=== PATIENT | male | born 1985 | race Caucasian/White ===

== ENCOUNTER 2018-03-28 21:53 | Emergency (ER) | payer OTHER ==
--- NOTE | 2018-03-29 00:50 | ER Document Report ---
ED Skin Rash/Insect Bite/Abscs - General Chief Complaint: Rash Stated Complaint: POSSIBLE RASH Time Seen by Provider: 03/29/18 00:33 Mode of Arrival: Ambulatory Information source: Patient, Relative Notes: Patient is a 32-year-old male comes emergency room complaining of a rash. He states that the rash originally started on his chest and is been there for at least 2 weeks. Then he states that it can exploded in the last 2 days across his back and now ends up his arms and legs. It is very pruritic and he does not have any close to what it is. Denies any other medical problems. States that his blood pressure has been high for the last couple weeks but he has not seen his primary care yet because he is busy. 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 He is on his feet a lot all day long. He gets overheated. He does not smoke. No other significant history. He states that no one in the family has any resemblance of this kind of rash. TRAVEL OUTSIDE OF THE [place] IN LAST 30 DAYS: No - HPI Patient complains to provider of: Skin rash/lesion Onset: Other - 2 weeks but worse the past 3 days. Onset/Duration: Gradual, Worse Severity: Moderate Pain Level: 3 Skin Character: Rash - Liu color scales, Scales Skin Temperature: Warm Quality of rash: Itchy Identify cause: No - Not 100% certain but it does appear to be a staph infection. Exacerbated by: Denies Relieved by: Denies Similar symptoms previously: Yes Recently seen / treated by doctor: No Past Medical History - General Information source: Patient, Relative - Social History Smoking Status: Never Smoker Cigarette use (# per day): No Chew tobacco use (# tins/day): No Frequency of alcohol use: None Drug Abuse: None Family History: Reviewed & Not Pertinent Patient has suicidal ideation: No Patient has homicidal ideation: No Renal/ Medical History: Denies: Hx Peritoneal Dialysis Past Surgical History: Reports: Hx Kidney (Renal Surgery) Review of Systems - Review of Systems Constitutional: No symptoms reported EENT: No symptoms reported Cardiovascular: No symptoms reported Respiratory: No symptoms reported Gastrointestinal: No symptoms reported Genitourinary: No symptoms reported Male Genitourinary: No symptoms reported Musculoskeletal: No symptoms reported Skin: Rash Hematologic/Lymphatic: No symptoms reported Neurological/Psychological: No symptoms reported -: Yes All other systems reviewed and negative Physical Exam - Vital signs Vitals: Temp Pulse Resp BP Pulse Ox 98.0 F 82 16 132/78 H 99 03/28/18 22:23 03/28/18 22:23 03/28/18 22:23 03/28/18 22:23 03/28/18 22:23 Interpretation: Hypertensive - Notes Notes: Patient well-nourished well-developed 32-year-old male no apparent distress. Although he does appear uncomfortable. - General General appearance: Alert - HEENT Head: Normocephalic, Atraumatic Eyes: Normal - Respiratory Respiratory status: No respiratory distress Chest status: Nontender Breath sounds: Normal. No: Rales, Stridor, Wheezing Chest palpation: Normal - Cardiovascular Rhythm: Regular Heart sounds: Normal auscultation Murmur: Yes - Abdominal Inspection: Normal Distension: No distension Bowel sounds: Normal Tenderness: Nontender Organomegaly: No organomegaly - Back Back: Normal, Nontender, Other - See skin and rash - Extremities General upper extremity: Nontender, Normal ROM, Normal strength, Other - See skin and rash General lower extremity: Nontender, Normal ROM, Normal strength, Normal weight bearing, Other - See skin and rash - Skin Skin Temperature: Warm Skin Color: Erythema Skin irregularity: Rash Location of irregularity: Generalized, Scalp, Neck, Abdomen, Chest, Back, Extremities Character of irregularity: Maculopapular, Confluent, Erythematous, Other - Examination of patient's rash shows been started on the anterior chest patient has a lot of hair. The presentation looks like a folliculitis that has migrated into a full-blown staph infection. Patient has the impetigo presentation of lesions. Across his anterior chest and now forming on the back. The arms and legs are minimally affected at this time. In the scalp also is minimally effective but there are the lesions that are gold and scaly should like that represent staph. Irregularity with: Warmth, Scaling, Crusting Course - Re-evaluation Re-evalutation: 03/29/18 00:53 I have talked to the patient and . I really believe this to be an impetigo type of presentation of a rash that started up probably as a folliculitis and has was not taking care of and has migrated into this full-fledged attack on his body. The folliculitis on the anterior chest is pretty self explanatory with the amount of hair patient has on the back as well. He is got excoriations where he has scratched himself across the abdomen. The have also turned the areas into a little bit of a cellulitis. So at this time you know I cannot 100% certain that this is a folliculitis slowly it could be an allergic reaction that is also gotten infected. At this point we will going to put him on a steroid taper and were going to put him on Bactrim for the infection along with some Keflex. Having patient follow-up with his primary care sometime this week. I have informed him not to be taking hot baths and that he is probably contagious with contact only. - Vital Signs Vital signs: Temp Pulse Resp BP Pulse Ox 98.0 F 82 16 132/78 H 99 03/28/18 22:23 03/28/18 22:23 03/28/18 22:23 03/28/18 22:23 03/28/18 22:23 Discharge - Discharge Clinical Impression: Staphylococcal infection of skin, Folliculitis Allergic reaction Qualifiers: Encounter type: initial encounter Qualified Code(s): T78.40XA - Allergy, unspecified, initial encounter Condition: Stable Disposition: HOME, SELF-CARE Instructions: Folliculitis ([facility]), Impetigo ([facility]), Acute Allergic Reaction ([facility]) , Cellulitis ([facility]) Additional Instructions: I really believe this to be a staph infection probably it started as a folliculitis that migrated into it because of inattention. This could be an allergic reaction that has started out and as she scratched it became a cellulitis kind of presentation. I am not really sure which came first. In any event we will treated with steroids antibiotics and I am going to put you on a Zantac pill which blocks histamine release in case this is an allergic reaction. I want you to contact your primary care follow-up with him sometime the first of the week. In any event I would stay closed and not rub up against anyone until you start having some response to the antibiotics. You can take the antihistamine that I prescribed for him to try Benadryl [id number] for the itch as well. Do not combine the 2 together. Should you have any concerns or problems return to ER for recheck. Prescriptions: Cephalexin Monohydrate [Keflex 500 mg Capsule] 500 mg PO Q6H 5 Days #28 capsule Hydroxyzine HCl 50 mg PO TID #30 tablet Prednisone 10 mg PO ASDIR PRN #1 tab.ds.pk PRN Reason: Sulfamethoxazole/Trimethoprim [Bactrim Ds Tablet] 1 each PO BID #28 tablet
[2018-03-29 01:25] VITALS: BP 123/77
== END 2018-03-29 01:24 | disposition home or self-care (01) ==
LOC: ER 21:53
DX: L08.9 Local infection of the skin and subcutaneous tissue, unspecified (principal); B95.8 Unspecified staphylococcus as the cause of diseases classified elsewhere; L03.311 Cellulitis of abdominal wall; L73.9 Follicular disorder, unspecified; T78.40XA Allergy, unspecified, initial encounter; X58.XXXA Exposure to other specified factors, initial encounter; I10 Essential (primary) hypertension
CPT/HCPCS: 99282

== ENCOUNTER → 2018-10-02 | Outpatient (CLI) | payer OTHER | LOC: OD 10:30 | PROVIDERS: ATTEND Otolaryngology | DX: J30.9 Allergic rhinitis, unspecified (principal) | CPT/HCPCS: 36415; 82785; 86003 ==

== ENCOUNTER 2019-02-24 10:04 | Day surgery (SDC) | payer OTHER ==
[2019-02-24] MEDS ORDERED: MIDAZOLAM 2 MG/2 ML INJ ONE (10:20)
[2019-02-24] MEDS ORDERED: LIDOCAINE 2% INJ-PF (20 MG/ML) 10 ML AMPUL ONE (10:20)
[2019-02-24] MEDS ORDERED: ONDANSETRON HCL INJ/PF 4 MG/2 ML SDV ONE (10:20)
[2019-02-24] MEDS ORDERED: FENTANYL CITRATE INJ/PF 100 MCG/2 ML AMPUL ONE ×2 (10:21→13:48)
[2019-02-24] MEDS ORDERED: DEXAMETHASONE SOD PHOS INJ 10 MG/1 ML VIAL ONE (10:21)
[2019-02-24] MEDS ORDERED: GLYCOPYRROLATE INJ 0.4 MG/2 ML VIAL ONE (10:21)
[2019-02-24] MEDS ORDERED: SUCCINYLCHOLINE CHLORIDE INJ 200 MG/10 ML VIAL ONE (10:22)
[2019-02-24] MEDS ORDERED: PROPOFOL INJ 200 MG/20 ML VIAL IV ONE (10:22)
[2019-02-24] MEDS ORDERED: OXYMETAZOLINE HCL 0.05% NASAL SPRAY 15 ML BOTTLE ONE (10:27)
[2019-02-24] MEDS ORDERED: COCAINE HCL 4% TOPICAL SOLN 4 ML ONE (10:27)
[2019-02-24] MEDS ORDERED: BACITRACIN ZINC OINTMENT 15 GM ONE (10:27)
[2019-02-24] MEDS ORDERED: LIDOCAINE 2%/EPINEPHRINE INJ 1.7 ML CARTRIDGE ONE ×3 (10:28→11:41)
[2019-02-24] MEDS ORDERED: DEXMEDETOMIDINE INJ 80 MCG/20 ML VIAL IV ONE (13:01)
--- NOTE | 2019-02-24 13:09 | Operative Report ---
Operative Report-[facility] Operative Report: Date: 24 February 2019 History: presents with a history of nasal dyspnea right eustachian tube dysf unction and bilateral nasal vestibular stenosis.. Physical exam revealed a deviated nasal septum ,Inferior turbinate hypertrophy, retracted tympanic membrane on the right and collapse bilateral external nasal valve that is improved with the Benigno maneuver.. Presents today for a septoplasty ,turbinate reduction, right myringotomy with tympanostomy tube placement, balloon dilation right eustachian tube and repair bilateral nasal vestibular stenosis using the SmartAsset nasal airway remodeling system. Informed consent was obtained for the patient. Pre-operative diagnosis: 1.Deviated nasal septum 2. Inferior turbinate hypertrophy 3. Nasal vestibular stenosis, right side 4. Nasal vestibular stenosis left side 5. Eustachian tube dysfunction right side Post operative diagnosis: same as above. Procedure: 1. Nasal septoplasty 2. Inferior turbinate reduction, right side 3 . Inferior turbinate reduction, left side 4. Repair nasal vestibular stenosis, right side (CPT code: 57876) 5. Repair nasal vestibular stenosis, left side (CPT code: 65906) 6. Right myringotomy with tympanostomy tube placement 7. Balloon dilation right eustachian tube/repair nasopharynx right side (CPT code 60656) 8. Rigid nasal endoscopy, right side Surgeon: Bigg Sanchez MD, FACS, [facility] Anesthia: RENATA Description of the procedure: After receiving informed consent, the patient was brought to the operating room and placed supine on the operating table. After successful insuction and intubation by anesthesia, cottonoids soaked with 4% cocaine replaced into each nasal cavity for approximately five minutes. They were removed andthe septum along with the inferior turbinate were injections with 2% Xylocaine with 1:100,000 epinephrine. The cottonoids were replaced. The patient was then prepped and draped in a sterile fashion. The cottonoids where then removed. The microscope was brought into the field and under binocular microscopy a properly sized speculum was placed into the right external auditory canal. Tympanic membrane was visualized. Myringotomy knife used to make a radial incision in the anterior inferior quadrant. Middle ear space was dry. A Paparella PE tube was then placed into this incision. Otic drops placed into the extra auditory canal. Attention was then directed to the balloon dilation of the eustachian tube. The cottonoids were removed from the right nasal cavity. A 30 degree rigid nasal endoscope was then placed in the right nasal cavity. The eustachian tube orifice was identified. Next the Acclarent Aera eustachian tube balloon dilation device was then placed into the right nasal cavity. The right eustachian tube was cannulated and the balloon was inflated to 12 abdiaziz of pressure for 2 minutes. Balloon was then let down and the device removed. A number 15 blade was used to make a bouchra transfixtion incision on the left side. Next using a Riley and then A Rankin elevator, a mucoperichondrial/mucoperiosteal flap was elevated back to the sphenoid rostrum. This was then elevated onto the nasal floor. The osseocartilaginous junction was and a mucoperiosteal flap was elevated on the right side. Thurston scissors were used to make horizontal cuts in the perpendicular plate of the ethmoid bone, superiorly and inferiorly. Quincy-Ewing forceps were used to remove this. A vomeroethmoid spur was identified and the mucosa was carefully dissected from it. A V-chisel was used to remove this spur. An inferior cartilage spur was removed using a D knife . The septum was viewed with the flaps in place and found to be relatively s traight. The bouchra transfixion incision was closed using 4-0 chromic and a 4-0 plain gut whip stitch was used to secure the septal flaps. Attention was then directed to the inferior turbinates where an inferior turbinate reduction was performed bilaterally. The Celon was used to perform an intramural cauterization bilaterally. Then each turbinate was medialized and then lateralized using a Sayer elevator . The Vivaer nasal airway remodeling system was then used to repair the nasal vestibular stenosis bilaterally. Attention was then directed to the right nostril where the Vivaer device was placed at the caudal margin of the upper lateral cartilage superiorly and the device activated. This was done 2 more times moving inferiorly. The procedure was done on the left side. The Vivaer was used in 3 different locations along the caudal edge of the upper lateral cartilage starting superiorly and moving inferiorly.. Silicon splints coated with bacitracin were placed into each nasal cavity and secured with a 2-0 prolene. Afrin soaked cottonoids were placed into each nasal cavity and secured to each other in front of the nose. The patient was then given back to anesthesia who successfully extubated them. The patient tolerated the procedure well without any complications. Estimated blood loss: 20 mL Fluids: 800 mL The patient was transferred to the post anesthesia care unit in stable condition with spontaneous respirations.
== END 2019-02-24 14:48 | disposition home or self-care (01) ==
LOC: SC 10:04
PROVIDERS: ATTEND Otolaryngology
DX: J34.2 Deviated nasal septum (principal); H69.81 Other specified disorders of Eustachian tube, right ear; J34.89 Other specified disorders of nose and nasal sinuses; J34.3 Hypertrophy of nasal turbinates; G44.89 Other headache syndrome; J30.9 Allergic rhinitis, unspecified; J35.1 Hypertrophy of tonsils; G47.33 Obstructive sleep apnea (adult) (pediatric)
CPT/HCPCS: 30465; 42950; 30802; 30520; 69436; J2250; J3490 ×6; J3010; J0330; J2405; J2704; J1100; 160

== ENCOUNTER 2019-02-25 22:26 | Emergency (ER) | payer OTHER ==
--- NOTE | 2019-02-25 22:56 | ER Document Report ---
ED ENT - General Stated Complaint: BACK PAIN Time Seen by Provider: 02/25/19 22:39 Primary Care Provider: LIZ CAMPOS MD [Primary Care Provider] - Follow up as needed Mode of Arrival: Ambulatory Information source: Patient, Relative Notes: HISTORY OF PRESENT ILLNESS: Patient is a 33-year-old male with a past medical history of recent septoplasty with eustachian to repair performed 1 day ago who presents with headache, congestion, sinus pressure, and general malaise. The patient denies recent fevers and reports that he has been taking both his antibiotic and his pain medications as instructed. Location: Head, nasal, sinus Onset: Today Provocation: Bending, movement, coughing Quality: Aching Radiation: Generalized Severity: Moderate Timing: Constant History of headaches: None Recent head injury: None Vision changes: None Associated symptoms: Denies fevers or chills, no vision changes, no altered mental status or weakness REVIEW OF SYSTEMS: CONSTITUTIONAL : Denies fever or chills, no sweats. Denies recent illness. EENT: Positive for nasal congestion, headache, and earaches. CARDIOVASCULAR: Denies chest pain. RESPIRATORY: Denies cough, cold, or chest congestion. Denies shortness of breath, difficulty breathing, or wheezing. GASTROINTESTINAL: Denies abdominal pain. Denies nausea, vomiting, or diarrhea. Denies constipation. GENITOURINARY: Denies difficulty urinating, painful urination, burning, frequency, or blood in urine. MUSCULOSKELETAL: Denies body aches. Denies neck or back pain or joint pain or swelling. SKIN: Denies rash or skin lesions. HEMATOLOGIC : Denies easy bruising or bleeding. LYMPHATIC: Denies swollen, enlarged glands. NEUROLOGICAL: Positive for headaches. Denies altered mental status or loss of consciousness. Denies weakness or paralysis or loss of use of either side. Denies problems with gait or speech. Denies sensory or motor loss. PSYCHIATRIC: Denies anxiety or stress or depression. All other systems reviewed and negative. PHYSICAL EXAMINATION: GENERAL: Tired-appearing but in no distress, well-nourished and in no acute distress. HEAD: Atraumatic, normocephalic. No scalp deformity, depression, or crepitance. EYES: Pupils are 3 mm and equal/round/reactive to light, extraocular movements intact, sclera anicteric, conjunctiva are normal. ENT: Nares have packing bilaterally, no active bleeding or drainage, oropharynx clear without exudates or palatal petechia. Moist mucous membranes. No tonsil hypertrophy. NECK: Normal range of motion, supple without lymphadenopathy. LUNGS: Breath sounds present, equal, and clear to auscultation bilaterally. No wheezes, rales, or rhonchi. HEART: Regular rate and rhythm without murmurs, rubs, or gallops. 2+ peripheral pulses. Normal capillary refill. ABDOMEN: Soft, nontender, nondistended. Normoactive bowel sounds. No guarding, no rebound. No masses appreciated. BACK: Normal contour, no midline tenderness. Rectal exam deferred. GENITAL/PELVC: Deferred. EXTREMITIES: Normal range of motion, no pitting or edema. No cyanosis. NEUROLOGICAL: No focal neurological deficits. Cranial nerves III-XII grossly intact. Moves all extremities spontaneously and on command. PSYCH: Normal mood, normal affect. No suicidal thoughts/ideations. No homicidal thoughts/ideations. No hallucinations. SKIN: Warm, dry, normal turgor, no rashes or lesions noted. ASSESSMENT AND PLAN: This patient is a 33-year-old male who presents with headache and increased sinus congestion following surgery 1 day ago to repair a deviated septum and clear his eustachian tubes. 1. Will obtain labs, CT head/face, and reassess. 2. Will give IV fluids with Toradol. TRAVEL OUTSIDE OF THE [place] IN LAST 30 DAYS: No - HPI Patient complains to provider of: Nose problem Onset: This evening Onset/Duration: Gradual Quality of pain: Achy, Stabbing Severity: Moderate Pain Level: 3 Context: Other - Recent septoplasty and repair of eustashion tubes Location of pain: Nose, Sinus Associated symptoms: Chills, Congestion, Face swelling, Fever, Headache, Sinus pain Similar symptoms previously: No Recently seen / treated by doctor: Yes - Related Data Allergies/Adverse Reactions: Penicillins Allergy (Verified 02/20/19 08:23) Hives Past Medical History - General Information source: Patient, Relative - Social History Smoking Status: Current Some Day Smoker Chew tobacco use (# tins/day): No Frequency of alcohol use: None Drug Abuse: None Lives with: Family Family History: Reviewed & Not Pertinent Patient has suicidal ideation: No Patient has homicidal ideation: No - Past Medical History Cardiac Medical History: Reports: None Denies: Hx Heart Attack, Hx Hypertension Pulmonary Medical History: Reports: None Denies: Hx Asthma EENT Medical History: Reports: Ears, Nose Neurological Medical History: Reports: None. Denies: Hx Cerebrovascular Accident, Hx Seizures Endocrine Medical History: Reports: None Renal/ Medical History: Reports: None. Denies: Hx Peritoneal Dialysis Malignancy Medical History: Reports None GI Medical History: Reports: None. Denies: Hx Hepatitis, Hx Hiatal Hernia, Hx Ulcer Musculoskeletal Medical History: Reports None Skin Medical History: Reports None Psychiatric Medical History: Reports: None Traumatic Medical History: Reports: None Infectious Medical History: Reports: None. Denies: Hx Hepatitis Past Surgical History: Reports: Hx Kidney (Renal Surgery), Other - Hx of septoplasty. Denies: Hx Open Heart Surgery, Hx Pacemaker - Immunizations Immunizations up to date: Yes Hx Diphtheria, Pertussis, Tetanus Vaccination: Yes Review of Systems - Review of Systems Constitutional: No symptoms reported EENT: See HPI, Nose congestion, Sinus pressure Cardiovascular: No symptoms reported Respiratory: No symptoms reported Gastrointestinal: No symptoms reported Genitourinary: No symptoms reported Male Genitourinary: No symptoms reported Musculoskeletal: No symptoms reported Skin: No symptoms reported Hematologic/Lymphatic: No symptoms reported Neurological/Psychological: No symptoms reported -: Yes All other systems reviewed and negative Physical Exam - Vital signs Vitals: Temp BP Pulse Ox 97.4 F 123/78 100 02/25/19 22:30 02/25/19 22:30 02/25/19 22:30 Interpretation: Normal - General General appearance: Appears well, Alert - HEENT Head: Normocephalic, Atraumatic Eyes: Normal Pupils: PERRL - Respiratory Respiratory status: No respiratory distress Chest status: Nontender Breath sounds: Normal Chest palpation: Normal - Cardiovascular Rhythm: Regular Heart sounds: Normal auscultation Murmur: No - Abdominal Inspection: Normal Distension: No distension Bowel sounds: Normal Tenderness: Nontender Organomegaly: No organomegaly - Back Back: Normal, Nontender - Extremities General upper extremity: Normal inspection, Nontender, Normal color, Normal ROM, Normal temperature General lower extremity: Normal inspection, Nontender, Normal color, Normal ROM, Normal temperature, Normal weight bearing. No: Rosey's sign - Neurological Neuro grossly intact: Yes Cognition: Normal Orientation: AAOx4 Suzie Coma Scale Eye Opening: Spontaneous Suzie Coma Scale Verbal: Oriented Suzie Coma Scale Motor: Obeys Commands Suzie Coma Scale Total: 15 Speech: Normal Motor strength normal: LUE, RUE, LLE, RLE Sensory: Normal - Psychological Associated symptoms: Normal affect, Normal mood - Skin Skin Temperature: Warm Skin Moisture: Dry Skin Color: Normal Course - Re-evaluation Re-evalutation: 02/26/19 02:05 Blood work shows mild elevation of white blood cell count. CT scan showed normal postoperative changes with no evidence of infection or complications. Patient was given IV fluids with Toradol and improved. Will discharge the patient home with strict return precautions and follow-up with ENT. All results were explained to and discussed with the patient and his , and all questions addressed and answered for the patient. The patient and his voice both understanding and agreeing with the plan. - Vital Signs Vital signs: Temp Pulse Resp BP Pulse Ox 98.5 F 146/95 H 95 02/25/19 23:24 02/25/19 23:01 02/25/19 23:01 - Laboratory Result Diagrams: 02/25/19 22:33 02/25/19 22:33 Laboratory results interpreted by me: 02/25/19 02/25/19 22:33 22:33 WBC 14.5 H Storey % (Auto) 15.0 H Absolute Neuts (auto) 8.6 H Absolute Monos (auto) 2.2 H Potassium 3.5 L Glucose 129 H - Diagnostic Test Radiology reviewed: Image reviewed, Reports reviewed Discharge - Discharge Clinical Impression: Post-operative pain Condition: Good Disposition: HOME, SELF-CARE Instructions: Headache ([facility]) Additional Instructions: You have been evaluated in the Emergency Department for headache and back pain with nasal congestion related to your surgery. While here, you had blood work and a head CT and it is now safe to be discharged home. Please follow-up with your primary physician and ENT as instructed in 1 week to be rechecked. Return to the Emergency Department if you experience high fevers, vision changes, altered behavior, difficulty walking, numbness/tingling of the extremities, worsening headache/back pain, or any other concerning symptoms. Prescriptions: Clindamycin HCl 300 mg PO TID #21 capsule Diclofenac Sodium 75 mg PO BID #30 tablet. Referrals: LIZ CAMPOS MD [Primary Care Provider] - Follow up as needed Print Language: Montserratian
[2019-02-25] MEDS ORDERED: NORMAL SALINE 1000 ML 1,000 ML IV ONE (22:57)
[2019-02-25] MEDS ORDERED: KETOROLAC TROMETHAMINE INJ/PF 30 MG/1 ML SDV IV ONE (22:57)
[2019-02-25 23:10] LABS: ABSOLUTE BASOPHILS # (AUTO) 0.1 10^3/uL (0.0-0.2); ABSOLUTE EOSINOPHILS # (AUTO) 0.2 10^3/uL (0.0-0.6); ABSOLUTE LYMPHOCYTES (AUTO) 3.5 10^3/uL (0.5-4.7); ABSOLUTE MONOCYTES (AUTO) 2.2 10^3/uL (0.1-1.4); ABSOLUTE NEUT (AUTO) 8.6 10^3/uL (1.7-8.2); BASOPHILS % (AUTO) 0.5 % (0-2); EOSINOPHILS % (AUTO) 1.1 % (0-6); HEMOGLOBIN 14.3 g/dL (13.5-17.0); MEAN CORPUSCULAR HEMOGLOBIN 28.3 pg (27.0-33.4); MEAN CORPUSCULAR HGB CONC 33.3 g/dL (32.0-36.0); MEAN CORPUSCULAR VOLUME 85 fl (80-97); PLATELET COUNT 315 10^3/uL (150-450); RED BLOOD COUNT 5.06 10^6/uL (4.35-5.55); RED CELL DISTRIBUTION WIDTH 13.8 % (11.5-14.0); SEGMENTED NEUTROPHILS % (AUTO) 59.4 % (42-78); TOTAL CELLS COUNTED % (AUTO) 100 %; WHITE BLOOD COUNT 14.5 10^3/uL (4.0-10.5)
[2019-02-25 23:18] LABS: ALBUMIN 3.9 g/dL (3.5-5.0); ALKALINE PHOSPHATASE 74 U/L (38-126); ANION GAP 10 (5-19); ASPARTATE AMINO TRANSFERASE 50 U/L (17-59); BILIRUBIN,DIRECT 0.2 mg/dL (0.0-0.4); BILIRUBIN,TOTAL 0.6 mg/dL (0.2-1.3); BLOOD UREA NITROGEN 13 mg/dL (7-20); CALCIUM 9.1 mg/dL (8.4-10.2); CARBON DIOXIDE 25 mmol/L (22-30); CHLORIDE 104 mmol/L (98-107); GLUCOSE 129 mg/dL (75-110); POTASSIUM 3.5 mmol/L (3.6-5.0); TOTAL PROTEIN 7.2 g/dL (6.3-8.2)
[2019-02-25 23:32] LABS: APPEARANCE,URINE CLEAR; BILIRUBIN,URINE NEGATIVE (NEGATIVE); COLOR,URINE YELLOW; GLUCOSE, URINE NEGATIVE (NEGATIVE); KETONES,URINE NEGATIVE (NEGATIVE); LEUKOCYTE ESTERASE,URINE NEGATIVE (NEGATIVE); NITRITE,URINE NEGATIVE (NEGATIVE); PROTEIN,URINE NEGATIVE (NEGATIVE); UROBILINOGEN,URINE NEGATIVE mg/dL (<2.0)
[2019-02-25 23:46] LABS: URINE AMPHETAMINES SCREEN NEGATIVE; URINE BARBITURATES SCREEN NEGATIVE; URINE BENZODIAZEPINES SCREEN NEGATIVE; URINE COCAINE SCREEN NEGATIVE; URINE MARIJUANA (THC) SCREEN NEGATIVE; URINE METHADONE SCREEN NEGATIVE; URINE PHENCYCLIDINE SCREEN NEGATIVE
--- NOTE | 2019-02-26 00:47 | RADIOLOGY REPORT (SQ) ---
EXAM DESCRIPTION: CT HEAD WITHOUT IV CONTRAST COMPLETED DATE/TME: 02/25/2019 22:57 CLINICAL HISTORY: 33 years, Male, Headache AFTER SURGERY YESTERDAY(SEPTOPLASTY, EUSTACHIAN TUBE REPAIR) COMPARISON: None. TECHNIQUE: 214 Images stored on PACS. All CT scanners at this facility use dose modulation, iterative reconstruction, and/or weight based dosing when appropriate to reduce radiation dose to as low as reasonably achievable (ALARA). [facility]: Dose Right [facility]: CareDose [facility]: Dose Right [facility]: Teradose 4D [facility]: [employer] LIMITATIONS: None. FINDINGS: The globes are intact. Mucosal thickening and polyp formation of the maxillary sinuses and ethmoid air cells. There is no displaced or depressed skull fracture. There is no intra or extra-axial hemorrhage. CT is limited for evaluation of acute infarct. There is no CT evidence for large or territorial acute infarct. No mass. No midline shift. IMPRESSION: Mucosal thickening and polyps of the paranasal sinuses. Remainder is unremarkable TECHNICAL DOCUMENTATION: Quality ID # [id number]: Final reports with documentation of one or more dose reduction techniques (e.g., Automated exposure control, adjustment of the mA and/or kV according to patient size, use of iterative reconstruction technique) copyright 2010 [employer]- All Rights Reserved
--- NOTE | 2019-02-26 01:02 | RADIOLOGY REPORT (SQ) ---
EXAM: CT maxillofacial without intravenous contrast CLINICAL DATA: 33-year-old male with facial pain after surgery yesterday (septoplasty and eustachian tube repair). TECHNICAL DATA: Axial CT of the facial bones was performed without intravenous contrast with sagittal and coronal reformatted images. The CT study is performed according to ALARA (as low as reasonably achievable) or ALARA/IMAGE GENTLY, with automatic adjustment of mA and/or kV according to patient size. Performed on: 02/26/2019 at 12:17 AM Comparison: None. FINDINGS: There are postsurgical changes of the nasal cavity consistent with septoplasty repair. There appear to be thin splints within the nostrils bilaterally supporting the nasal septum. The nasal bones are intact. The bony nasal septum is minimally deviated to the left posteriorly. The anterior maxillary spine is intact. There is no evidence of acute facial bone fracture. The mandible is intact. The temporomandibular joints are preserved. Both globes are intact and are symmetric. The extraocular muscles and optic nerves are symmetric. The intraconal fat is preserved. There is no evidence of intraorbital emphysema. There is patchy mucosal thickening of the paranasal sinuses. There is a mucous retention cyst within the posterior left maxillary sinus measuring approximately 2.5 x 1.7 cm in cross-sectional diameter. There does appear to be at least partial obstruction of the ostiomeatal units bilaterally. Mastoid air cells and middle ear cavities are clear. There is no significant soft tissue swelling identified. IMPRESSION: 1. Postsurgical changes of the nasal cavity consistent with septoplasty repair. There appear to be thin splints within the nostrils bilaterally supporting the nasal septum. 2. Patchy paranasal sinus mucosal thickening with at least partial obstruction of the ostiomeatal units.
[2019-02-26 02:17] VITALS: BP 164/108
== END 2019-02-26 02:28 | disposition home or self-care (01) ==
LOC: ER 22:26
DX: G89.18 Other acute postprocedural pain (principal); R51 Headache; J34.89 Other specified disorders of nose and nasal sinuses; R09.81 Nasal congestion; R53.81 Other malaise; R50.9 Fever, unspecified; F17.200 Nicotine dependence, unspecified, uncomplicated; D72.829 Elevated white blood cell count, unspecified; Z98.890 Other specified postprocedural states
CPT/HCPCS: 36415; 85025; 80053; 81001; 80307; 83605; 70450; 70486; J1885; J7030; 96361; 96374; 99284

== ENCOUNTER 2019-05-05 09:32 | Day surgery (SDC) | payer OTHER ==
[2019-05-05] MEDS ORDERED: MIDAZOLAM 2 MG/2 ML INJ ONE (11:15)
[2019-05-05] MEDS ORDERED: LIDOCAINE 2% INJ-PF (20 MG/ML) 10 ML AMPUL ONE (11:15)
[2019-05-05] MEDS ORDERED: ONDANSETRON HCL INJ/PF 4 MG/2 ML SDV ONE (11:15)
[2019-05-05] MEDS ORDERED: CARBOXYMETHYLCELLULOSE SOD 0.5% 0.4 ML DROPERETTE ONE (11:15)
[2019-05-05] MEDS ORDERED: PROPOFOL INJ 200 MG/20 ML VIAL IV ONE (11:16)
[2019-05-05] MEDS ORDERED: HYDROMORPHONE HCL INJ/PF 2 MG/ML AMPULE ONE (11:16)
[2019-05-05] MEDS ORDERED: DEXAMETHASONE SOD PHOS INJ 10 MG/1 ML VIAL ONE (11:16)
[2019-05-05] MEDS ORDERED: ROCURONIUM BROMIDE INJ 50 MG/5 ML VIAL IV ONE (11:16)
[2019-05-05] MEDS ORDERED: SUCCINYLCHOLINE CHLORIDE INJ 200 MG/10 ML VIAL ONE (11:16)
[2019-05-05] MEDS ORDERED: OXYMETAZOLINE HCL 0.05% NASAL SPRAY 15 ML BOTTLE ONE (11:17)
[2019-05-05] MEDS ORDERED: DEXMEDETOMIDINE INJ 80 MCG/20 ML VIAL IV ONE (11:48)
--- NOTE | 2019-05-05 12:17 | Operative Report ---
Operative Report-[facility] Operative Report: Date: 05 May 2019 History: Patient with history of obstructive sleep apnea syndrome and recurrent tonsillitis. Was initially scheduled for a uvulopalatopharyngoplasty and a tonsillectomy, however the insurance company denied the uvulopalatopharyngoplasty. Discussed options with the patient and he wanted to proceed with just a tonsillectomy at this time. Will need to defer the uvulopalatopharyngoplasty until another time. Pre-operative diagnosis: 1. Chronic Tonsillitis 2. Obstructive sleep apnea syndrome Post operative diagnosis: Same as above Procedure: Tonsillectomy Surgeon: Bigg Sanchez MD, FACS, [facility] Anesthesia: General via Endotrachreal intubation Procedure: After receiving informed consent, the patient was brought to the operating room and placed supine on the operating table. After successful induction and intubation by anesthesia the patient was turned 90 degrees and placed in Trendelenburg. A shoulder roll was placed along with a head drape. A McIvor mouth gag was inserted atraumatically into the oral cavity and opened up. The soft palate was palpated and found to be normal. Red rubber catheters were inserted down each nasal cavity and brought out to elevate the soft palate. Attention was then directed to the tonsils. The right tonsil was grasped with tenaculum and retracted medially. Using Bovie electrocautery the right tonsil was dissected free from its tonsillar fossa . Hemostasis was obtained using suction Bovie electrocautery. A similar procedure was performed on the left side. Both tonsils were removed. The tonsils were 3+. The oral pharynx and the oral cavity were irrigated with copious amounts of normal saline, without evidence of bleeding. An orogastric tube was inserted into the stomach to aspirate gastric contents. The McIvor mouthgag was then released and reopened, the surgical bed was dry without evidence of bleeding. The McIvor mouth gag along with the red catheters were removed from the patient. The patient was then returned back to anesthesia who successfully extubated the patient. Estimated blood loss: 5 mL Fluids: 500 mL The patient was then transported to the Post Anesthesia Care Unit in stable condition with spontaneous respiration. No complication.
[2019-05-05] MEDS ORDERED: ACETAMINOPHEN 1,000 MG/100 ML RTUPB IV ONE (12:53)
== END 2019-05-05 13:47 | disposition home or self-care (01) ==
LOC: SC 09:32
PROVIDERS: ATTEND Otolaryngology
DX: G47.33 Obstructive sleep apnea (adult) (pediatric) (principal); G47.30 Sleep apnea, unspecified; J35.1 Hypertrophy of tonsils; J34.89 Other specified disorders of nose and nasal sinuses; J34.2 Deviated nasal septum; H69.81 Other specified disorders of Eustachian tube, right ear; J30.9 Allergic rhinitis, unspecified; J34.3 Hypertrophy of nasal turbinates
CPT/HCPCS: 88304 ×2; 00170; 42826; J2250; J3490 ×5; J1170; J0330; J2405; J2704; J1100; J0131; 170

== ENCOUNTER → 2020-01-15 | Outpatient (CLI) | payer OTHER ==
--- NOTE | 2020-01-15 10:03 | RADIOLOGY REPORT (SQ) ---
EXAM DESCRIPTION: VENOUS UNILATERAL LOWER IMAGES COMPLETED DATE/TIME: 01/15/2020 9:54 am REASON FOR STUDY: LLE PAIN/SWELLING R22.42 LOCALIZED SWELLING, MASS AND LUMP, LEFT LOWER LIMB M79.6 05 PAIN IN LEFT LEG COMPARISON: None. TECHNIQUE: Dynamic and static sanders scale and color images acquired of the left leg venous system. Se lected spectral images acquired with additional compression and augmentation maneuvers. The contralat eral common femoral vein and saphenofemoral junction were also imaged. Images stored on PACS. LIMITATIONS: None. FINDINGS: COMMON FEMORAL: Normal phasicity, compression and augmentation. No visualized echogenic ma terial on sanders scale. No defects on color images. FEMORAL: Normal compression and augmentation. No visualized echogenic material on sanders scale. No defe cts on color images. POPLITEAL: Normal compression, augmentation. No visualized echogenic material on sanders scale. No defec ts on color images. CALF VESSELS: Normal compression, augmentation. No visualized echogenic material on sanders scale. No de fects on color images. GSV and SSV: Normal compression, augmentation. No visualized echogenic material on sanders scale. No def ects on color images. ANY DEEP VENOUS INSUFFICIENCY: No. ANY EVIDENCE OF POPLITEAL CYST: No. OTHER: No other significant finding. CONTRALATERAL COMMON FEMORAL VEIN AND SAPHENOFEMORAL JUNCTION: Normal phasicity, compression and augmentation. No visualized echogenic material on sanders scale. No de fects on color images. IMPRESSION: NO EVIDENCE DVT OR SVT IN THE LEFT LEG. TECHNICAL DOCUMENTATION: JOB ID: [id number] 2010 [employer]- All Rights Reserved Reading location - IP/workstation name: [email or web address]
== END ==
LOC: SP 08:42
PROVIDERS: ATTEND Podiatrist Foot & Ankle Surgery
DX: M79.605 Pain in left leg (principal); M79.89 Other specified soft tissue disorders
CPT/HCPCS: 93971

== ENCOUNTER 2020-02-02 06:36 | Day surgery (SDC) | payer OTHER ==
[2020-02-02] MEDS ORDERED: ONDANSETRON HCL INJ/PF 4 MG/2 ML SDV ONE (06:57)
[2020-02-02] MEDS ORDERED: MIDAZOLAM 2 MG/2 ML INJ ONE (06:57)
[2020-02-02] MEDS ORDERED: LIDOCAINE 2% INJ-PF (20 MG/ML) 10 ML AMPUL ONE (06:57)
[2020-02-02] MEDS ORDERED: CARBOXYMETHYLCELLULOSE SOD 0.5% 0.4 ML DROPERETTE ONE (06:57)
[2020-02-02] MEDS ORDERED: FENTANYL CITRATE INJ/PF 100 MCG/2 ML AMPUL ONE (06:58)
[2020-02-02] MEDS ORDERED: DEXAMETHASONE SOD PHOS INJ 10 MG/1 ML VIAL ONE (06:58)
[2020-02-02] MEDS ORDERED: PROPOFOL INJ 200 MG/20 ML VIAL IV ONE (06:58)
[2020-02-02] MEDS ORDERED: ROCURONIUM BROMIDE INJ 50 MG/5 ML VIAL IV ONE (06:59)
[2020-02-02] MEDS ORDERED: SUCCINYLCHOLINE CHLORIDE INJ 200 MG/10 ML VIAL ONE (06:59)
[2020-02-02] MEDS ORDERED: COCAINE HCL 4% TOPICAL SOLN 4 ML ONE (07:15)
[2020-02-02] MEDS ORDERED: LIDOCAINE 2%/EPINEPHRINE INJ 1.7 ML CARTRIDGE ONE (07:16)
[2020-02-02] MEDS ORDERED: OXYMETAZOLINE HCL 0.05% NASAL SPRAY 15 ML BOTTLE ONE (07:16)
--- NOTE | 2020-02-02 08:18 | Operative Report ---
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 Presents today for repair of the nasal vestibular stenosis. Informed consent was obtained from the patient. Pre-operative diagnosis: Nasal vestibular stenosis, right Post operative diagnosis: Same as above Procedure: Repair nasal vestibular stenosis, right [CPT = 59450] Surgeon: Bigg Sanchez MD, FACS, [facility] Anesthesia: General via endotracheal intubation Procedure: After receiving informed consent from the patient, he was taken to the operating room placed supine on the operating room table. After successful induction intubation by anesthesia, cottonoids saturated 4% cocaine were placed into each nasal cavity for approximately 5 minutes. They were withdrawn then the intercartilaginous area on the right along with the turbinate and nasal septum were injected with 2% lidocaine with 1:100,000 epinephrine. The pledgets were replaced. Patient was then prepped and draped in sterile fashion. The cottonoids were removed. Attention was then directed to the nasal valve area on the right, where the [employer] nasal airway remodeling system was used to repair the nasal vestibular stenosis. The handpiece was placed superiorly at the caudal margin of the upper lateral cartilage and the device was activated. This was repeated 3 more times marching inferiorly towards the piriform aperture. This resulted in stiffening of the nasal valve area, reducing the nasal vestibular stenosis. Cottonoids saturated with Afrin were then placed into each nasal cavity and tied in front of the nose. These will be removed in the postanesthesia care unit, prior to discharge. No complications. The patient was then given back to anesthesia who successfully extubated the patient without complications. Estimated blood loss: Minimal Fluids: 200 mL The patient was then transported to the Post Anesthesia Care Unit in stable condition with spontaneous respiration. No complication.
[2020-02-02] MEDS ORDERED: HYDROCODONE/ACETAMINOPHEN 5-325 MG TABLET ONE (08:36)
== END 2020-02-02 09:19 | disposition home or self-care (01) ==
LOC: SC 06:36
PROVIDERS: ATTEND Otolaryngology
DX: J34.89 Other specified disorders of nose and nasal sinuses (principal); J30.9 Allergic rhinitis, unspecified; Z79.899 Other long term (current) drug therapy; Z88.0 Allergy status to penicillin; G47.33 Obstructive sleep apnea (adult) (pediatric); Z03.818 Encounter for observation for suspected exposure to other biological agents ruled out
CPT/HCPCS: 30465; 87635; J2250; J3490 ×5; C9046; J3010; J0330; J2405; J2704; J1100; C9803

== ENCOUNTER → 2020-07-18 | Outpatient (CLI) | payer OTHER ==
--- NOTE | 2020-07-18 16:23 | RADIOLOGY REPORT (SQ) ---
EXAM DESCRIPTION: TIBIA FIBULA LEFT IMAGES COMPLETED DATE/TIME: 07/18/2020 2:25 pm REASON FOR STUDY: LEFT LEG PAIN M79.605 PAIN IN LEFT LEG COMPARISON: None. NUMBER OF VIEWS: Two views. TECHNIQUE: Two radiographic images acquired of the left tibia and fibula to include the knee and ank le in at least one projection. LIMITATIONS: None. FINDINGS: MINERALIZATION: Normal. BONES: No acute fracture or dislocation. No worrisome bone lesions. SOFT TISSUES: No obvious swelling or foreign body. OTHER: No other significant finding. IMPRESSION: NEGATIVE STUDY OF THE LEFT TIBIA AND FIBULA. NO RADIOGRAPHIC EVIDENCE OF ACUTE INJURY. TECHNICAL DOCUMENTATION: JOB ID: [id number] 2010 [employer]- All Rights Reserved Reading location - IP/workstation name: [email or web address]
== END ==
LOC: RAD 13:59
PROVIDERS: ATTEND Physician Assistant
DX: M79.605 Pain in left leg (principal)